=== PATIENT | male | born 1940 | race Caucasian/White ===

== ENCOUNTER 2017-01-22 08:48 | Observation (INO) | payer OTHER ==
[~2017-01-22] VITALS: Ht 182.9 cm; Wt 98.8 kg
[2017-01-22 09:36] LABS: MCHC 34.3 G/DL (30.0-36.0); MCV 90.2 FL (86-99); MEAN PLAT.VOLUME 10.8 uM^3 (9.0-12.4); PLATELET COUNT 194 K/uL (156-360); RBC DIS.WIDTH-CV 13.1 % (11.8-14.6); RBC DIS.WIDTH-SD 42.4 % (39-53); WHITE BLOOD COUNT 7.5 K/uL (4.1-10.2)
[2017-01-22 09:56] LABS: CHLORIDE 106 mEq/L (99-109); POTASSIUM 4.4 mEq/L (3.7-5.4); SODIUM 142 mEq/L (136-147)
[2017-01-22 09:57] LABS: TROP-I INTERPRETATION NEGATIVE; TROPONIN-I < 0.01 ng/mL (0.0-0.30)
[2017-01-22 09:58] LABS: GLUCOSE 103 mg/dL (70-99)
[2017-01-22 09:59] LABS: ANION GAP 11 MEQ/L (2-14)
[2017-01-22 10:02] LABS: GFR ESTIMATE (CALCULATED) 57 mL/min/
[2017-01-22 10:03] LABS: UREA NITROGEN (BUN) 20 mg/dL (9-23)
[2017-01-22] MEDS ORDERED: SYNTHROID150 MCG PO (11:02)
[2017-01-22] MEDS ORDERED: LOPRESSOR25 MG PO (11:03)
[2017-01-22] MEDS ORDERED: PHENYTOIN SODI200 MG PO (11:04)
[2017-01-22] MEDS ORDERED: ALTACE2.5 MG PO (11:04)
[2017-01-22] MEDS ORDERED: PRAVACHOL40 MG PO (11:05)
[2017-01-22 11:13] LABS: D-DIMER ELISA 0.48 mg/L FEU (< 0.57)
[2017-01-22 12:48] LABS: LIPASE 70 U/L (1.0-51.0)
[2017-01-22 13:17] LABS: Estimated Average Glucose 120 mg/dL (70-123); HEMOGLOBIN A1c (GLYCOHEMOGLOB) 5.8 % HGB (Below 5.7)
[2017-01-22 13:20] VITALS: BP 193/83
[2017-01-22 13:20] LABS: HDL CHOLESTEROL 52 MG/DL (Desirable>=40); LDL CHOLESTEROL 85 mg/dL (Desirable<100); NON-HDL CHOLESTEROL 125 mg/dL (Desirable<160); TOTAL CHOLESTEROL 177 mg/dL (Desirable<200); TRIGLYCERIDES 202 MG/DL (Normal: <150)
[2017-01-22 18:02] LABS: TROP-I INTERPRETATION NEGATIVE; TROPONIN-I < 0.01 ng/mL (0.0-0.30)
[2017-01-22 20:00] VITALS: BP 156/72
[2017-01-22 22:37] LABS: TROP-I INTERPRETATION NEGATIVE; TROPONIN-I < 0.01 ng/mL (0.0-0.30)
[2017-01-22 23:46] VITALS: BP 108/55
[2017-01-23 06:19] VITALS: BP 135/70
[2017-01-23 06:26] LABS: HEMATOCRIT 46.1 % (38.0-50.0); MCH 32.1 PG (29.0-34.0); MCHC 34.5 G/DL (30.0-36.0); MCV 92.9 FL (86-99); MEAN PLAT.VOLUME 11.8 uM^3 (9.0-12.4); PLATELET COUNT 190 K/uL (156-360); RBC DIS.WIDTH-CV 13.2 % (11.8-14.6); RBC DIS.WIDTH-SD 44.8 % (39-53); RED BLOOD COUNT 4.96 M/uL (4.00-5.50); WHITE BLOOD COUNT 9.1 K/uL (4.1-10.2)
[2017-01-23 06:54] LABS: ALKALINE PHOSPHATASE 99 IU/L (3-129); ANION GAP 8 MEQ/L (2-14); CHLORIDE 102 MEQ/L (99-109); GFR ESTIMATE (CALCULATED) 57 mL/min/; GLUCOSE 89 mg/dL (70-99); POTASSIUM 4.6 MEQ/L (3.7-5.4); SAMPLE HEMOLYSIS CHECK 0; SAMPLE ICTERIC CHECK 0; SAMPLE LIPEMIA CHECK 0; SODIUM 140 MEQ/L (136-147); TOTAL BILIRUBIN 0.5 MG/DL (0.0-1.0); UREA NITROGEN (BUN) 21 mg/dL (9-23)
[2017-01-23 07:49] VITALS: BP 138/90
[2017-01-23 11:03] VITALS: BP 107/54
[2017-01-23] MEDS ORDERED: ASPIR-LOW81 MG PO (15:16)
[2017-01-23] MEDS ORDERED: PROTONIX40 MG PO (15:17)
== END 2017-01-23 15:32 | disposition home or self-care (01) ==
LOC: EME 08:48 → 5WEST 12:09 → EDOF 12:09 → 5WEST 13:19
PROVIDERS: Internal Medicine; Physician Assistant Medical
DX: R07.89 Other chest pain (principal); I25.10 Atherosclerotic heart disease of native coronary artery without angina pectoris; R10.13 Epigastric pain; K21.9 Gastro-esophageal reflux disease without esophagitis; Z95.1 Presence of aortocoronary bypass graft; I10 Essential (primary) hypertension; E78.5 Hyperlipidemia, unspecified; E89.0 Postprocedural hypothyroidism; K44.9 Diaphragmatic hernia without obstruction or gangrene
CPT/HCPCS: 71020; 76775; 80048; 80053; 80061; 83036; 83690; 84484; 85027; 85379; 93005; 99281; 99285; G0378; J2405

== ENCOUNTER 2017-03-17 14:56 | Inpatient (IN) | payer OTHER ==
[~2017-03-17] VITALS: Ht 182.9 cm; Wt 95.9 kg
[~2017-03-17 14:56] MED LIST: ALTACE2.5 MG PO; ASPIR-LOW81 MG PO; FLOMAX0.4 MG PO; LOPRESSOR25 MG PO; PHENYTOIN SODI200 MG PO; PRAVACHOL40 MG PO; PROTONIX40 MG PO; SYNTHROID150 MCG PO
[2017-03-17 15:58] LABS: HEMATOCRIT 49.2 % (38.0-50.0); MCH 30.8 PG (29.0-34.0); MCHC 33.1 G/DL (30.0-36.0); MCV 92.8 FL (86-99); MEAN PLAT.VOLUME 10.6 uM^3 (9.0-12.4); PLATELET COUNT 212 K/uL (156-360); RBC DIS.WIDTH-CV 13.3 % (11.8-14.6); RBC DIS.WIDTH-SD 45.1 % (39-53); WHITE BLOOD COUNT 8.3 K/uL (4.1-10.2)
[2017-03-17 16:06] LABS: CHLORIDE 107 mEq/L (99-109); POTASSIUM 4.6 mEq/L (3.7-5.4); SODIUM 141 mEq/L (136-147)
[2017-03-17 16:08] LABS: GLUCOSE 86 mg/dL (70-99)
[2017-03-17 16:10] LABS: ANION GAP 10 MEQ/L (2-14)
[2017-03-17 16:12] LABS: GFR ESTIMATE (CALCULATED) 57 mL/min/
[2017-03-17 16:13] LABS: UREA NITROGEN (BUN) 23 mg/dL (9-23)
[2017-03-17 16:20] LABS: TROP-I INTERPRETATION NEGATIVE; TROPONIN-I < 0.01 ng/mL (0.0-0.30)
[2017-03-17 21:05] VITALS: BP 131/63
[2017-03-17 23:47] VITALS: BP 114/55
[2017-03-18 01:01] LABS: TROP-I INTERPRETATION NEGATIVE; TROPONIN-I 0.01 ng/mL (0.0-0.30)
[2017-03-18 03:51] VITALS: BP 94/50
[2017-03-18 03:55] LABS: HDL CHOLESTEROL 45 MG/DL (Desirable>=40); LDL CHOLESTEROL 90 mg/dL (Desirable<100); NON-HDL CHOLESTEROL 125 mg/dL (Desirable<160); TOTAL CHOLESTEROL 170 mg/dL (Desirable<200); TRIGLYCERIDES 173 MG/DL (Normal: <150)
[2017-03-18 06:22] LABS: TROP-I INTERPRETATION NEGATIVE; TROPONIN-I < 0.01 ng/mL (0.0-0.30)
[2017-03-18 07:00] VITALS: BP 118/65
[2017-03-18 09:11] LABS: Estimated Average Glucose 117 mg/dL (70-123); HEMOGLOBIN A1c (GLYCOHEMOGLOB) 5.7 % HGB (Below 5.7)
[2017-03-18 18:00] VITALS: BP 140/63
[2017-03-18 19:08] VITALS: BP 158/71
[2017-03-18 23:16] VITALS: BP 147/71
[2017-03-19 03:16] VITALS: BP 121/58
[2017-03-19 06:03] LABS: EOSINOPHIL (%) 0.1 % (0-5); HEMATOCRIT 43.4 % (38.0-50.0); IMMATURE GRANULOCYTE (%) 0.2 % (0.0-0.7); INSTRUMENT ABS NEUTROPHIL CT 7.4 K/uL; LYMPHOCYTE COUNT 0.8 K/uL (1.0-2.8); MCH 30.9 PG (29.0-34.0); MCHC 33.6 G/DL (30.0-36.0); MCV 91.8 FL (86-99); MEAN PLAT.VOLUME 11.3 uM^3 (9.0-12.4); MONOCYTE (%) 7.6 % (3-12); MONOCYTE COUNT 0.7 K/uL (0-0.8); NEUTROPHIL (%) 83.2 % (45-76); NEUTROPHIL COUNT 7.4 K/uL (1.8-6.4); PLATELET COUNT 170 K/uL (156-360); RBC DIS.WIDTH-CV 13.2 % (11.8-14.6); RBC DIS.WIDTH-SD 45.1 % (39-53); RED BLOOD COUNT 4.73 M/uL (4.00-5.50)
[2017-03-19 06:29] LABS: ANION GAP 9 MEQ/L (2-14); CHLORIDE 107 MEQ/L (99-109); GFR ESTIMATE (CALCULATED) > 59 mL/min/; GLUCOSE 105 mg/dL (70-99); POTASSIUM 3.8 MEQ/L (3.7-5.4); SAMPLE HEMOLYSIS CHECK 0; SAMPLE ICTERIC CHECK 0; SAMPLE LIPEMIA CHECK 0; SODIUM 139 MEQ/L (136-147); UREA NITROGEN (BUN) 18 mg/dL (9-23)
[2017-03-19 07:34] VITALS: BP 136/63
[2017-03-19 10:58] VITALS: BP 117/56
[2017-03-19] MEDS ORDERED: IMDUR30 MG PO (13:25)
== END 2017-03-19 14:39 | disposition home or self-care (01) | DRG 287 ==
LOC: EME 14:56 → EXP 14:56 → EDOF 19:19 → 5WEST 19:19 → EDOF 19:19 → 5WEST 20:38 → 4EAST 03-18 17:45
PROVIDERS: Hospitalist; Physician Assistant Medical
DX: I25.110 Atherosclerotic heart disease of native coronary artery with unstable angina pectoris (principal); I25.82 Chronic total occlusion of coronary artery; I25.810 Atherosclerosis of coronary artery bypass graft(s) without angina pectoris; E78.5 Hyperlipidemia, unspecified; K21.9 Gastro-esophageal reflux disease without esophagitis; N40.0 Benign prostatic hyperplasia without lower urinary tract symptoms; I12.9 Hypertensive chronic kidney disease with stage 1 through stage 4 chronic kidney disease, or unspecified chronic kidney disease; N18.3 Chronic kidney disease, stage 3 (moderate); J44.9 Chronic obstructive pulmonary disease, unspecified; G40.909 Epilepsy, unspecified, not intractable, without status epilepticus; K44.9 Diaphragmatic hernia without obstruction or gangrene; I73.9 Peripheral vascular disease, unspecified; E66.9 Obesity, unspecified; Z79.82 Long term (current) use of aspirin; Z95.1 Presence of aortocoronary bypass graft; Z68.27 Body mass index [BMI] 27.0-27.9, adult
CPT/HCPCS: 71020; 80048; 80061; 83036; 84484; 85025; 85027; 93005; 99281; 99285; C1769; C1887; C1894; G0378; J0360; J1644; J2250; J3010; J7030; J7050

== ENCOUNTER 2018-03-23 12:10 | Inpatient (IN) | payer OTHER ==
[~2018-03-23] VITALS: Ht 182.9 cm; Wt 96.7 kg
[~2018-03-23 12:10] MED LIST changes: +IMDUR30 MG PO
[2018-03-23 15:34] LABS: HEMATOCRIT 49.6 % (38.0-50.0); MCHC 34.3 G/DL (30.0-36.0); MCV 93.2 FL (86-99); PLATELET COUNT 205 K/uL (156-360); RBC DIS.WIDTH-CV 13.3 % (11.8-14.6); RBC DIS.WIDTH-SD 45.3 % (39-53); RED BLOOD COUNT 5.32 M/uL (4.00-5.50); WHITE BLOOD COUNT 9.2 K/uL (4.1-10.2)
[2018-03-23 16:14] LABS: CHLORIDE 105 MEQ/L (99-109); CREATININE 1.4 MG/DL (0.6-1.3); GFR ESTIMATE (CALCULATED) 52 mL/min/ (58.99-99999); GLUCOSE 98 mg/dL (70-99); POTASSIUM 5.1 MEQ/L (3.7-5.4); SODIUM 141 MEQ/L (136-147); UREA NITROGEN (BUN) 28 mg/dL (9-23)
[2018-03-23 17:00] LABS: ALBUMIN 4.4 G/DL (3.2-4.8); DIRECT BILIRUBIN 0.1 mg/dL (0.0-0.3); TOTAL BILIRUBIN 0.4 MG/DL (0.0-1.0)
[2018-03-23 17:06] LABS: ALKALINE PHOSPHATASE 129 IU/L (3-129); ALT (GPT) 11 IU/L (3-49); AST (GOT) 23 IU/L (2-34); LIPASE 73 U/L (1.0-51.0); TOTAL PROTEIN 7.6 G/DL (6.4-8.3)
[2018-03-23 18:22] LABS: TROP-I INTERPRETATION NEGATIVE; TROPONIN-I 0.01 ng/mL (0.0-0.30)
[2018-03-23] MEDS ORDERED: IMDUR30 MG PO (19:26)
[2018-03-23] MEDS ORDERED: CELECOXIB200 MG PO (19:27)
[2018-03-23 19:56] LABS: APPEARANCE CLEAR ((CLEAR)); BILIRUBIN NEGATIVE; BLOOD NEGATIVE; COLOR STRAW ((YELLOW)); GLUCOSE (STRIP) NEGATIVE; KETONES NEGATIVE; LEUKOCYTES TRACE; NITRITE NEGATIVE; PROTEIN (STRIP) NEGATIVE; SPECIFIC GRAVITY 1.031 (1.000-1.030); UROBILINOGEN 0.2 MG/DL (0.2-1.0)
[2018-03-23 19:59] LABS: BACTERIA NONE SEEN /HPF; EPITHELIAL CELLS RARE /HPF; MUCUS TRACE /LPF; RED BLOOD CELLS 0-5 /HPF (0-5); UCUL ADDED? YES; WHITE BLOOD CELLS 15-20 /HPF (0-5)
[2018-03-23 20:55] LABS: HEMATOCRIT 46.9 % (38.0-50.0); MCH 31.6 PG (29.0-34.0); MCHC 34.1 G/DL (30.0-36.0); MCV 92.7 FL (86-99); PLATELET COUNT 194 K/uL (156-360); RBC DIS.WIDTH-CV 13.3 % (11.8-14.6); RBC DIS.WIDTH-SD 45.7 % (39-53); RED BLOOD COUNT 5.06 M/uL (4.00-5.50); WHITE BLOOD COUNT 8.3 K/uL (4.1-10.2)
[2018-03-23 21:28] LABS: HDL CHOLESTEROL 48 MG/DL (Desirable>=40); LDL CHOLESTEROL 123 mg/dL (Desirable<100); NON-HDL CHOLESTEROL 159 mg/dL (Desirable<160); TOTAL CHOLESTEROL 207 mg/dL (Desirable<200); TRIGLYCERIDES 179 MG/DL (Normal: <150)
[2018-03-24] VITALS (8 sets, daily range): BP systolic 121–181; BP diastolic 60–86
[2018-03-24 09:28] LABS: HEMOGLOBIN A1c (GLYCOHEMOGLOB) 5.5 % (Below 5.7)
[2018-03-25] VITALS (7 sets, daily range): BP systolic 124–159; BP diastolic 65–87
[2018-03-25 12:34] LABS: CSF PROTEIN 110 mg/dL (15-45); GLUCOSE, CSF 66 mg/dL (40-80)
[2018-03-25 12:47] LABS: APPEARANCE CLEAR/COLORLESS; CSF TUBE NUMBER TUBE #3; RED CELL COUNT 1 /MM^3 (0-1)
[2018-03-25 12:48] LABS: WHITE CELL COUNT 1 /MM^3 (0-5)
[2018-03-26 03:39] VITALS: BP 133/63
[2018-03-26 07:07] VITALS: BP 137/78
[2018-03-26 11:47] VITALS: BP 146/77
[2018-03-26 15:03] VITALS: BP 115/58
[2018-03-26 19:30] VITALS: BP 134/66
[2018-03-27] VITALS: BP 126/60
[2018-03-27 06:07] LABS: CHLORIDE 102 MEQ/L (99-109); CREATININE 1.6 MG/DL (0.6-1.3); GFR ESTIMATE (CALCULATED) 45 mL/min/ (58.99-99999); GLUCOSE 93 mg/dL (70-99); SODIUM 135 MEQ/L (136-147); UREA NITROGEN (BUN) 21 mg/dL (9-23)
[2018-03-27 06:22] LABS: POTASSIUM 3.7 MEQ/L (3.7-5.4)
[2018-03-27 07:44] VITALS: BP 177/82
[2018-03-27 11:15] VITALS: BP 128/60
[2018-03-27 16:43] VITALS: BP 182/87
[2018-03-27 19:10] VITALS: BP 138/65
[2018-03-27 23:39] VITALS: BP 172/79
[2018-03-28] VITALS (7 sets, daily range): BP systolic 109–199; BP diastolic 57–91
[2018-03-28 05:58] LABS: CHLORIDE 103 MEQ/L (99-109); CREATININE 1.4 MG/DL (0.6-1.3); GFR ESTIMATE (CALCULATED) 52 mL/min/ (58.99-99999); GLUCOSE 79 mg/dL (70-99); POTASSIUM 3.9 MEQ/L (3.7-5.4); SODIUM 136 MEQ/L (136-147); UREA NITROGEN (BUN) 21 mg/dL (9-23)
[2018-03-29 03:19] VITALS: BP 157/74
[2018-03-29 07:41] VITALS: BP 178/76
[2018-03-29] MEDS ORDERED: FAMOTIDINE20 MG PO (11:07)
[2018-03-29] MEDS ORDERED: RAMIPRIL5 MG PO (11:07)
[2018-03-29] MEDS ORDERED: AMLODIPINE BESY10 MG PO (11:07)
[2018-03-29 12:26] VITALS: BP 141/72
[2018-03-29 16:55] VITALS: BP 139/65
[2018-03-29 19:13] VITALS: BP 152/72
[2018-03-29 23:23] VITALS: BP 154/70
[2018-03-30 03:58] VITALS: BP 150/78
[2018-03-30 09:02] VITALS: BP 158/74
[2018-03-30 11:40] VITALS: BP 123/60
[2018-03-30 15:50] VITALS: BP 121/58
== END 2018-03-30 16:09 | DRG 95 ==
LOC: EME 12:10 → EDOF 20:20 → 4SOUTH 20:20 → ENRESERV 20:25 → 4SOUTH 03-24 00:18
PROVIDERS: Hospitalist; Physician Assistant; Physician Assistant Medical; Psychiatry & Neurology Neurology
PROC: 009U3ZX Drainage of Spinal Canal, Percutaneous Approach, Diagnostic (ICD-10-PCS; principal; 2018-03-25)
PROC: 0JB40ZX Excision of Right Neck Subcutaneous Tissue and Fascia, Open Approach, Diagnostic (ICD-10-PCS; 2018-03-28)
DX: G61.0 Guillain-Barre syndrome (principal); N39.0 Urinary tract infection, site not specified; B95.2 Enterococcus as the cause of diseases classified elsewhere; N17.9 Acute kidney failure, unspecified; C79.89 Secondary malignant neoplasm of other specified sites; R79.89 Other specified abnormal findings of blood chemistry; E87.70 Fluid overload, unspecified; R19.02 Left upper quadrant abdominal swelling, mass and lump; R59.9 Enlarged lymph nodes, unspecified; R60.0 Localized edema; I10 Essential (primary) hypertension; I25.10 Atherosclerotic heart disease of native coronary artery without angina pectoris; E89.0 Postprocedural hypothyroidism; E78.5 Hyperlipidemia, unspecified; N40.0 Benign prostatic hyperplasia without lower urinary tract symptoms; M48.061 Spinal stenosis, lumbar region without neurogenic claudication; M51.27 Other intervertebral disc displacement, lumbosacral region; M54.32 Sciatica, left side; M51.26 Other intervertebral disc displacement, lumbar region; M51.37 Other intervertebral disc degeneration, lumbosacral region; F03.90 Unspecified dementia, unspecified severity, without behavioral disturbance, psychotic disturbance, mood disturbance, and anxiety; K21.9 Gastro-esophageal reflux disease without esophagitis; Z91.81 History of falling; Z60.2 Problems related to living alone; Z85.850 Personal history of malignant neoplasm of thyroid; Z95.1 Presence of aortocoronary bypass graft; Z87.442 Personal history of urinary calculi; Z80.42 Family history of malignant neoplasm of prostate; Z82.49 Family history of ischemic heart disease and other diseases of the circulatory system
CPT/HCPCS: 70450; 70551; 71046; 72132; 72148; 74177; 80048; 80061; 80076; 81003; 82945; 83036; 83690; 83880; 84157; 84484; 85027; 87070; 87077; 87086; 87186; 87205; 88305; 88341 TC; 88342 TC; 89051; 93005; 93306; 93971; 99281; 99285; G0378; G8978 GP CK; G8979 GP CI; G8987 GO CJ; G8988 CI; J1566; J1650; J7030; J7040